=== PATIENT | male | born 1970 | race Caucasian/White ===

== ENCOUNTER 2019-09-22 08:00 | Outpatient (RCR) | payer OTHER, SELFPAY | END 2019-09-22 08:05 | disposition home or self-care (01) | LOC: PT 08:00 | PROVIDERS: PCP Nurse Practitioner Family; Visit Provider Orthopaedic Surgery Adult Reconstructive Orthopaedic Surgery | DX: M25.562 Pain in left knee (principal); M25.462 Effusion, left knee | CPT/HCPCS: 97010; 97014; 97110; 97163; 97760; G0283 ==

== ENCOUNTER → 2019-12-31 08:35 | Outpatient (CLI) | payer OTHER, SELFPAY ==
--- NOTE | 2019-12-31 08:35 | CT_ITS ---
PROCEDURE: CT ABDOMEN PELVIS WO/W CON CLINICAL INDICATION: hematuria History kidney stones COMPARISON: ABDPELW CT ABD PELVIS W/ CONTRAST from 10/20/2013 TECHNIQUE: IV Contrast: 75ML OPTIRAY 350 Oral Contrast 450ml Redicat Axial images obtained with sagittal and coronal reformats. All CT scans at the facility use one or more dose reduction, viz: automated exposure control, ma/kV adjustment per patient size (including targeted exams where dose is matched to indication, i.e. head), or iterative reconstruction technique. FINDINGS: LOWER THORAX: No acute finding. Coronary artery calcifications are present. There is mild thickening of the distal esophagus nonspecific ABDOMEN & PELVIS: There are 2 hypodense areas in the liver 1 in the hepatic dome in the left hepatic lobe measuring 5 mm and 1 in the medial segment of left hepatic lobe near the falciform ligament at 5 mm. The spleen has an unremarkable appearance as does the pancreas. There is nodularity of the left adrenal gland not significantly changed and may be due to adenomatous involvement. There has been a prior cholecystectomy. The wall the stomach appears somewhat thickened but could be due to nondistention. There is a 4 mm nonobstructing stone in the lower pole of the left kidney. No hydronephrosis. No ureteral calculi. No intestinal obstruction or free air. No evidence of appendicitis or diverticulitis. No ureteral calculi are evident. Calcification is present within the prostate centrally. No acute bony findings. IMPRESSION: 1. Nonobstructing left nephrolithiasis. No ureteral calculi. No hydronephrosis 2. There are 2 small hypodensities of the liver. These are nonspecific and too small to categorize statistically probably benign. 3. Thickened appearance of the wall the stomach which may be due to nondistention or gastritis. Dictated by: Joselito Morrison MD 01/01/2020 12:28 Electronically signed by Joselito Morrison MD in [facility] 01/01/2020 12:28
== END ==
PROVIDERS: PCP Nurse Practitioner Family; Visit Provider Urology
DX: R31.9 Hematuria, unspecified (principal)
CPT/HCPCS: 74178; Q9967

== ENCOUNTER 2020-02-19 07:33 | Outpatient (RCR) | payer OTHER, SELFPAY | END 2020-02-19 08:47 | disposition home or self-care (01) | LOC: PT 07:33 | PROVIDERS: PCP Nurse Practitioner Family; Visit Provider Orthopaedic Surgery Adult Reconstructive Orthopaedic Surgery | DX: M25.562 Pain in left knee (principal) | CPT/HCPCS: 97163 ==

== ENCOUNTER 2020-03-01 17:49 | Emergency (ER) | payer OTHER, SELFPAY ==
[2020-03-01 18:17] VITALS: BP 131/78; PULSE 71; RESP 20; TEMP 36.8; O2SAT 99; BMI 39.1
[2020-03-01 18:30] VITALS: BP 114/80; BP 131/78; PULSE 60; PULSE 71
--- NOTE | 2020-03-01 18:30 | ECG_ITS ---
APPROVED REPORT Exam: Resting ECG HR:73 bpm ECG Measurements Heart Rate 73 AXES OK 140 P 36 QRSd 80 QRS 25 QT 370 T 29 QTc 407 <Conclusion> Normal sinus rhythm Normal ECG Electronically signed by : Rah Ramos, 03/03/2020 06:43:16
--- NOTE | 2020-03-01 18:31 | PC.NURSE ---
PATIENT SENT TO ER PER PAPO BOBBY APRN FOR FURTHER EVALUATION
[2020-03-01 18:33] VITALS: BP 110/80; PULSE 71; RESP 20; TEMP 36.8; O2SAT 99; BMI 38.9
--- NOTE | 2020-03-01 18:34 | XR_ITS ---
PROCEDURE: XR CHEST PORTABLE CLINICAL HISTORY: orthostasis Hypotension, smoker COMPARISON: No exams were available for comparison FINDINGS: The cardiomediastinal silhouette and pulmonary vascularity are within normal limits. There is some minimal blunting of the left CP angle. This may only be due to overlying soft tissue attenuation. Cannot exclude a small effusion or pleural thickening. The lungs are otherwise clear. No acute bony abnormalities. IMPRESSION: Minimal blunting left CP angle as described above otherwise negative Dictated b Joselito Morrison MD 03/01/2020 21:49 Joselito Morrison MD in [facility] 03/02/2020 16:44
--- NOTE | 2020-03-01 18:34 | HMH.EDGENADL ---
ED Disposition Clinical Impression: Orthostasis, Near syncope Disposition: Home, Self-Care Condition on Discharge: Good Instructions: DI for Syncope in Adults (Fainting) Additional Instructions: You have been evaluated for near syncope when standing. Please try to stay hydrated, your creatinine was elevated today (could be due to dehydration). Take your antihypertensives at the same time every day. Avoid taking narcotic pain medication after your postoperative pain has resolved. Drink water to stay hydrated. Follow-up with your primary care doctor tomorrow as scheduled. Return to the emergency department tonight if you have any new or worsening symptoms, chest pain, dizziness, other concerns. Referrals: Nahid Montana APRN [Primary Care Provider] - Time of Disposition: 20:12 - Critical Care Critical Care Time: No Attestation: On 03/01/20, the high probability of a clinically significant, sudden or life threatening deterioration of the following system(s) required my full and direct attention, intervention and personal management. The time I documented below is in addition to time spent performing reported procedures but includes the following listed in this critical care notation. Medical Decision Making - Medical Records Medical records reviewed: Yes: I reviewed the patient's medical records. - Musa Inquiry Pt receiving controlled substance: No Vital Signs: 03/01/20 18:17 03/01/20 18:30 03/01/20 18:33 Temperature 98.3 F 98.3 F Temperature Source Oral Oral Pulse Rate [Left Brachial] 71 71 Pulse Rate [Orthostatic Sitting Left Brachial] 71 Pulse Rate [Orthostatic Standing Left Brachial] 60 Respiratory Rate 20 20 Blood Pressure [Left Arm] 131/78 110/80 Blood Pressure [Orthostatic Sitting Left Arm] 131/78 Blood Pressure [Orthostatic Standing Left Arm] 114/80 Blood Pressure Mean [Left Arm] 95 90 Blood Pressure Source [Left Arm] Automatic Cuff Automatic Cuff Blood Pressure Position [Left Arm] Sitting Sitting 02 Sat by Pulse Oximetry 99 99 Oxygen Delivery Method Room Air Room Air - Lab Data Lab Results 03/01/20 18:40: WBC 11.8 H, RBC 4.61, Hgb 14.8, Hct 44.7, MCV 96.9 H, MCH 32.0 H, MCHC 33.0, RDW 12.8, Plt Count 260, MPV 7.8, Neut % (Auto) 66.2, Lymph % (Auto) 26.4, [place] % (Auto) 5.0, Eos % (Auto) 1.7, Baso % (Auto) 0.7, Neut # (Auto) 7.8, Lymph # (Auto) 3.1, [place] # (Auto) 0.6, Eos # (Auto) 0.2, Baso # (Auto) 0.1 03/01/20 18:40: Sodium 138, Potassium 3.8, Chloride 102, Carbon Dioxide 27, Anion Gap 12.8, BUN 16, Creatinine 1.40 H, Estimated Creat Clear 132, Estimated GFR 53 L, Est GFR ( Amer) 65, Glucose 108 H, Calcium 9.4, Troponin I < 0.01 Result diagrams: 03/01/20 18:40 03/01/20 18:40 Orders (Tests/Meds): ORDERS Category Date Time Status CXR --portable [XR chest portable] Stat Exams 03/01/20 18:34 Taken Troponin I Q3H Lab 03/01/20 21:45 Ordered Troponin I Q3H Lab 03/02/20 00:45 Ordered - ECG Data Tracing #1 Sinus rhythm with ventricular rate of 73 bpm. QRS 80, QTc 407. No arrhythmia or ischemia. Medical Decision Narrative: In summary this is a 49-year-old male presenting to the emergency department with orthostasis and near syncopal episodes. Patient is overall well-appearing on arrival to the emergency department. No tachycardia or hypotension. Plan to obtain CBC, CMP, troponin profile, chest x-ray, EKG. EKG shows sinus rhythm without evidence of ischemia or arrhythmia. Laboratory results remarkable for elevated creatinine at 1.40, baseline within normal limits. Also evidence of dehydration on labs. Patient was able to tolerate oral fluid intake. Will not give IV fluids at this time. Initial troponin not elevated. Patient was recommended to stay for delta troponin, said he was not able to needed to go home. Was not having chest pain at this time. He will follow-up with his primary care physician tomorrow at 10 AM. Given strict return p
[2020-03-01 18:51] LABS: Basophils # 0.1 K/mm3 (0-0.2); Basophils % 0.7 % (0.1-2.0); Eosinophils # 0.2 K/mm3 (0.0-0.4); Eosinophils % 1.7 % (0.1-12.0); Hematocrit 44.7 % (42.0-52.0); Hemoglobin 14.8 g/dL (14.1-18.0); Lymphocytes # 3.1 K/mm3 (0.7-4.5); Lymphocytes % 26.4 % (10-50); Mean Corpuscular Volume 96.9 fl (80-94); Mean Platelet Volume 7.8 fl (7.4-10.4); Monocytes # 0.6 K/mm3 (0.1-1.0); Neutrophils # 7.8 K/mm3 (1.8-7.8); Neutrophils % 66.2 % (37.0-80.0); Platelet Count 260 K/mm3 (142-424); Red Blood Count 4.61 M/mm3 (4.60-6.20); Red Cell Distribution Width 12.8 % (11.5-17.5); White Blood Count 11.8 K/mm3 (4.8-10.8)
[2020-03-01 18:54] LABS: Chloride 102 mmol/L (98-107); Potassium 3.8 mmoL/L (3.5-5.1); Sodium 138 mmol/L (136-145)
[2020-03-01 18:57] LABS: Anion Gap 12.8 mEq/L (5-15); Blood Urea Nitrogen 16 mg/dl (9-20); Calcium 9.4 mg/dl (8.4-10.2); Carbon Dioxide 27 mmol/L (22.0-30.0); Creatinine Clearance Estimated 132 mL/min (50-200); Estimated Glomerular Filt Rate 53 ml/min (>60); GFR (African American) 65 ML/MIN (>60); Glucose 108 mg/dl (74-100)
[2020-03-01 19:21] LABS: Troponin I < 0.01 ng/ml (0.00-0.034)
[2020-03-01 20:42] VITALS: BP 151/79; PULSE 73; RESP 16; TEMP 36.8; O2SAT 98
== END 2020-03-01 20:45 | disposition home or self-care (01) ==
LOC: UTC 17:55 → ER 18:31
PROVIDERS: Emergency Provider Emergency Medicine; PCP Nurse Practitioner Family
DX: I95.1 Orthostatic hypotension (principal); R55 Syncope and collapse; J44.9 Chronic obstructive pulmonary disease, unspecified; F17.210 Nicotine dependence, cigarettes, uncomplicated; Z79.899 Other long term (current) drug therapy; Z87.442 Personal history of urinary calculi
CPT/HCPCS: 71045; 80048; 84484; 85025; 93005; 99283

== ENCOUNTER 2022-10-24 10:09 | Emergency (ER) | payer OTHER, SELFPAY ==
[2022-10-24 10:10] VITALS: BP 151/98; PULSE 71; RESP 21; TEMP 36.6; O2SAT 97; BMI 39.4
--- NOTE | 2022-10-24 10:22 | EXP.UTC ---
Discharge Plan Disposition Patient Disposition: Home, Self-Care Condition: Good Prescriptions Prescriptions: New amoxicillin 875 mg tablet 875 mg PO BID Qty: 20 0RF No Action potassium chloride 10 mEq capsule, extended release 10 meq PO DAILY Label Comments: TAKE ONE CAPSULE BY MOUTH EVERY DAY --TAKE WITH FOOD-- furosemide 20 mg tablet 20 mg PO DAILY testosterone [AndroGel] 1 % (25 mg/2.5gram) gel in packet 1 packet TRANSDERMA DAILY metoprolol succinate 50 MG tablet extended release 24 hr 50 mg PO DAILY omeprazole 40 MG capsule,delayed release(DR/EC) 40 mg PO DAILY hydrochlorothiazide 12.5 MG capsule 12.5 mg PO DAILY losartan 100 MG tablet 100 mg PO DAILY ciprofloxacin HCl 500 MG tablet 500 mg PO BID 10 Days Qty: 20 0RF Referrals Follow up/Referrals: Nahid Montana APRN [Primary Care Provider] - See instructions Activity Restrictions/Add. Instructions Additional Instructions/Restrictions: Take medication as prescribed Over the counter Debrox may help to removed clogged wax in ears follow up with your Family Doctor if no improvement or any worsening of symptoms Return if needed Clinical Impressions Clinical Impression: Otitis media Instructions Patient Instructions: Middle Ear Infection, Ear Infections (Alternative Therapy) Discharge ED Provider: Yoanna Dixon [facility] [place] HPI General Stated complaint: LT ear pain Mode of Arrival: Ambulatory Source of Information: Patient Limitations: No Limitations Time Seen by Provider: 10/24/22 10:22 Description of Symptoms (Recalled from Triage Doc. by RN): PATIENT C/O LEFT EAR PAIN WITH DECREASED HEARING THAT STARTED THIS MORNING HEENT Symptoms (Recalled from RN notes): Yes Resp Symptoms (Recalled from RN notes): No Skin Symptoms (Recalled from RN notes): No MS Symptoms (Recalled from RN notes): No Functional Status (Recalled from RN notes): WNL History of Present Illness Provider Complaint: Patient states that he had been having pain on and off in his left ear but this morning the pain is worse and his ear feels stopped up and unable to hear out of it so he came in to get checked Related Data Home Medications Medication Instructions Recorded Confirmed hydrochlorothiazide 12.5 mg capsule 12.5 mg PO DAILY HTN 08/28/19 01/05/20 losartan 100 mg tablet 100 mg PO DAILY HTN 08/28/19 01/05/20 metoprolol succinate 50 mg 50 mg PO DAILY HTN 08/28/19 01/05/20 tablet,extended release 24 hr omeprazole 40 mg capsule,delayed 40 mg PO DAILY GERD 08/28/19 01/05/20 release furosemide 20 mg tablet 20 mg PO DAILY 12/12/19 01/05/20 potassium chloride 10 mEq 10 meq PO DAILY 12/12/19 01/05/20 capsule,extended release testosterone 1 % (25 mg/2.5 gram) 1 packet transdermal DAILY 12/12/19 01/05/20 transdermal gel packet (AndroGel) Previous Rx's Medication Instructions Recorded ciprofloxacin HCl 500 mg tablet 500 mg PO BID 10 days #20 tabs 08/28/19 amoxicillin 875 mg tablet 875 mg PO BID #20 tabs 10/24/22 Allergies Allergy/AdvReac Type Severity Reaction Status Date / Time No Known Allergies Allergy Verified 01/05/20 14:00 Worker's Comp Is this a Worker's Comp case?: [facility] Disclaimer: The information contained in this section may have been updated after the patient was seen, as this information can be updated by other users. Social History Smoking Status: Current every day smoker tobacco type: cigarettes packs per day: 1 second hand exposure: Yes alcohol intake: never substance use type: marijuana current occupational status: other Travel in the last 8 weeks: None household members: spouse housing: house ROS Obtained: Yes All systems reviewed & no additional complaints except as documented and Yes Systems reviewed as appropriate & no additional complaints except as documented Constitutional Constitutional: Reports system reviewed and no additional complaints, exce
[2022-10-24 10:24] VITALS: BP 151/98; PULSE 71; RESP 21; TEMP 36.6; O2SAT 97
== END 2022-10-24 10:40 | disposition home or self-care (01) ==
PROVIDERS: Emergency Provider Nurse Practitioner; PCP Nurse Practitioner Family
DX: H66.92 Otitis media, unspecified, left ear (principal); F17.210 Nicotine dependence, cigarettes, uncomplicated
CPT/HCPCS: 99212; 99214; G0463

== ENCOUNTER 2022-10-31 15:44 | Emergency (ER) | payer OTHER, SELFPAY ==
[2022-10-31 15:55] VITALS: BP 140/97; PULSE 101; RESP 20; TEMP 36.8; O2SAT 97; BMI 39.2
--- NOTE | 2022-10-31 16:07 | EXP.UTC ---
Discharge Plan Disposition Patient Disposition: Home, Self-Care Condition: Good Prescriptions Prescriptions: New ciprofloxacin-dexamethasone 0.3-0.1 % Drops,Suspension 2 drp Ear-Left BID 7 Days Qty: 1 0RF methylprednisolone 4 mg Tablets,Dose Pack 4 mg PO DIRECTED Qty: 21 0RF cefdinir 300 mg capsule 300 mg PO BID Qty: 20 0RF No Action potassium chloride 10 mEq capsule, extended release 10 meq PO DAILY Label Comments: TAKE ONE CAPSULE BY MOUTH EVERY DAY --TAKE WITH FOOD-- furosemide 20 mg tablet 20 mg PO DAILY testosterone [AndroGel] 1 % (25 mg/2.5gram) gel in packet 1 packet TRANSDERMA DAILY metoprolol succinate 50 MG tablet extended release 24 hr 50 mg PO DAILY omeprazole 40 MG capsule,delayed release(DR/EC) 40 mg PO DAILY hydrochlorothiazide 12.5 MG capsule 12.5 mg PO DAILY losartan 100 MG tablet 100 mg PO DAILY Referrals Follow up/Referrals: Elieser Cuevas MD [Physician] - See instructions Nahid Montana APRN [Primary Care Provider] - See instructions Activity Restrictions/Add. Instructions Additional Instructions/Restrictions: Drink plenty of fluids. Take tylenol or ibuprofen for pain or fever. Take the medications as directed. Follow up with your regular doctor. GO TO THE ER FOR ANY WORSENING SYMPTOMS Stop the amoxicillin/clavulanate (augmentin) and start the cefdinir (omnicef) antibiotics Stop the ear drop that you are using and start the one we prescribed here today. Follow up with an ENT doctor. I put in a referral to Dr. Cuevas that comes here to the speciality clinic. Clinical Impressions Clinical Impression: Acute otitis media of left ear with perforation Instructions Patient Instructions: DI for Tympanic Membrane Perforation-Adult Discharge ED Provider: Jose Antonio Cuellar [facility] [place] General Stated complaint: ear ache Mode of Arrival: Ambulatory Source of Information: Patient Limitations: No Limitations Time Seen by Provider: 10/31/22 16:07 Description of Symptoms (Recalled from Triage Doc. by RN): Can't hear out of left ear HEENT Symptoms (Recalled from RN notes): Yes Resp Symptoms (Recalled from RN notes): No Skin Symptoms (Recalled from RN notes): No MS Symptoms (Recalled from RN notes): No Functional Status (Recalled from RN notes): n/a History of Present Illness Provider Complaint: He states that he has had decreased hearing in his left ear for the past 1 week. He was saw here 8 days ago for an ear infection. He has been taking augmentin since then. He states that his ear pain has resolved but he cannot hear out of the ear now. Related Data Home Medications Medication Instructions Recorded Confirmed hydrochlorothiazide 12.5 mg capsule 12.5 mg PO DAILY HTN 08/28/19 10/31/22 losartan 100 mg tablet 100 mg PO DAILY HTN 08/28/19 10/31/22 metoprolol succinate 50 mg 50 mg PO DAILY HTN 08/28/19 10/31/22 tablet,extended release 24 hr omeprazole 40 mg capsule,delayed 40 mg PO DAILY GERD 08/28/19 10/31/22 release furosemide 20 mg tablet 20 mg PO DAILY Fluid 12/12/19 10/31/22 potassium chloride 10 mEq 10 meq PO DAILY . 12/12/19 10/31/22 capsule,extended release testosterone 1 % (25 mg/2.5 gram) 1 packet transdermal DAILY 12/12/19 01/05/20 transdermal gel packet (AndroGel) Previous Rx's Medication Instructions Recorded cefdinir 300 mg capsule 300 mg PO BID #20 caps 10/31/22 ciprofloxacin 0.3 %-dexamethasone 2 drp Ear-Left BID 7 days #1 ea 10/31/22 0.1 % ear drops,suspension methylprednisolone 4 mg tablets in 4 mg PO DIRECTED #21 tabs 10/31/22 a dose pack Allergies Allergy/AdvReac Type Severity Reaction Status Date / Time No Known Allergies Allergy Verified 10/31/22 16:02 Worker's Comp Is this a Worker's Comp case?: No [facility] Disclaimer: The information contained in this section may have been updated after the patient was seen, as this information can be u
[2022-10-31 16:52] VITALS: BP 140/97; PULSE 101; RESP 20; TEMP 36.8; O2SAT 97
== END 2022-10-31 16:52 | disposition home or self-care (01) ==
PROVIDERS: Emergency Provider Nurse Practitioner Family; PCP Nurse Practitioner Family
DX: H66.92 Otitis media, unspecified, left ear (principal); H72.92 Unspecified perforation of tympanic membrane, left ear; F17.210 Nicotine dependence, cigarettes, uncomplicated
CPT/HCPCS: 99212; 99214; G0463

== ENCOUNTER 2022-11-19 11:00 | Emergency (ER) | payer OTHER, SELFPAY ==
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
[2022-11-19 11:35] VITALS: BP 147/96; PULSE 72; RESP 18; TEMP 36.8; O2SAT 97; BMI 39.1
[2022-11-19 12:13] VITALS: BP 147/96; PULSE 72; RESP 18; TEMP 36.8; O2SAT 97
== END 2022-11-19 12:22 | disposition home or self-care (01) ==
PROVIDERS: Emergency Provider Nurse Practitioner Family; PCP Nurse Practitioner Family
DX: S39.012A Strain of muscle, fascia and tendon of lower back, initial encounter (principal); M54.32 Sciatica, left side; F17.210 Nicotine dependence, cigarettes, uncomplicated; I10 Essential (primary) hypertension; K21.9 Gastro-esophageal reflux disease without esophagitis; X50.0XXA Overexertion from strenuous movement or load, initial encounter
CPT/HCPCS: 96372; 99212; 99214; G0463

== ENCOUNTER 2023-12-16 07:45 | Emergency (ER) | payer OTHER, SELFPAY ==
[2023-12-16 07:47] VITALS: BP 112/84; PULSE 111; RESP 21; TEMP 36.9; O2SAT 97; BMI 35.3
--- NOTE | 2023-12-16 07:51 | ECG_ITS ---
APPROVED REPORT Exam: Resting ECG HR:105 bpm ECG Measurements Heart Rate 105 AXES NE 140 P 66 QRSd 85 QRS 50 QT 326 T 40 QTc 387 Conclusion SINUS TACHYCARDIA ABNORMAL RHYTHM ECG UNCONFIRMED REPORT Electronically signed by : Jose Antonio Spence, 12/16/2023 15:12:45
[2023-12-16 07:52] VITALS: BP 112/84; PULSE 102; RESP 16; O2SAT 98
[2023-12-16 07:54] VITALS: BMI 35.3
--- NOTE | 2023-12-16 07:58 | PC.NURSE ---
DR OJEDA AT BEDSIDE
[2023-12-16 08:00] VITALS: BP 126/76; PULSE 100; RESP 18; O2SAT 98
--- NOTE | 2023-12-16 08:08 | CT_ITS ---
PROCEDURE INFORMATION: Exam: CTA Chest With Contrast Exam date and time: 12/16/2023 8:33 AM Age: 53 years old Clinical indication: Dyspnea; Additional info: Dyspnea, recent lung mass diagnosis TECHNIQUE: Imaging protocol: Computed tomographic angiography of the chest with contrast. Exam focused on the arteries. 3D rendering (Not supervised by radiologist): MIP and/or 3D reconstructed images were created by the technologist. Radiation optimization: All CT scans at this facility use at least one of these dose optimization techniques: automated exposure control; mA and/or kV adjustment per patient size (includes targeted exams where dose is matched to clinical indication); or iterative reconstruction. Contrast material: ISOVUE; Contrast volume: 70 ml; Contrast route: INTRAVENOUS (IV); COMPARISON: CR XR CHEST PORTABLE 03/01/2020 6:52 PM FINDINGS: Pulmonary arteries: No evidence of pulmonary embolus to the segmental level. Aorta: No aneurysm of the aorta. No dissection of the aorta. Lungs: Heterogeneous mass in right lower lobe measures 7 x 10 x 6.4 cm. It has a 5.6 x 4 cm low-attenuation area that may be necrotic tumor. Pleural spaces: Small right pleural effusion. Heart: Unremarkable. No cardiomegaly. No pericardial effusion. Lymph nodes: Pathologic node adjacent to the bronchus intermedius 2.6 x 2.1 cm (series 5, image 67.). Right hilar node 17 x 14 mm.. Gallbladder and bile ducts: Cholecystectomy Kidneys and ureters: Nonobstructing left renal calculi Bones/joints: Unremarkable. No acute fracture. Soft tissues: Unremarkable. IMPRESSION: 1. Heterogeneous mass in right lower lobe measures 7 x 10 x 6.4 cm. It has a 5.6 x 4 cm low-attenuation area that may be necrotic tumor. Consistent with malignancy 2. Small right pleural effusion. 3. Pathologic node adjacent to the bronchus intermedius 2.6 x 2.1 cm (series 5, image 67.). 4. Right hilar node 17 x 14 mm.. 5. No evidence of pulmonary embolus to the segmental level.
--- NOTE | 2023-12-16 08:08 | PC.NURSE ---
pt ambulated to bathroom, tolerated well
--- NOTE | 2023-12-16 08:09 | ED_ITS ---
Discharge Plan Disposition Patient Disposition: Home, Self-Care Prescriptions Prescriptions: No Action potassium chloride 10 mEq capsule, extended release 10 meq PO DAILY Patient Comments: TAKE ONE CAPSULE BY MOUTH EVERY DAY --TAKE WITH FOOD-- furosemide 20 mg tablet 20 mg PO DAILY testosterone [AndroGel] 1 % (25 mg/2.5gram) gel in packet 1 packet TRANSDERMA DAILY ciprofloxacin-dexamethasone 0.3-0.1 % Drops,Suspension 2 drp Ear-Left BID 7 Days Qty: 1 0RF methylprednisolone 4 mg Tablets,Dose Pack 4 mg PO DIRECTED Qty: 21 0RF cefdinir 300 mg capsule 300 mg PO BID Qty: 20 0RF metoprolol succinate 50 MG tablet extended release 24 hr 50 mg PO DAILY omeprazole 40 MG capsule,delayed release(DR/EC) 40 mg PO DAILY hydrochlorothiazide 12.5 MG capsule 12.5 mg PO DAILY losartan 100 MG tablet 100 mg PO DAILY methocarbamol 500 mg tablet 500 mg PO TID PRN (Reason: muscle pain) Qty: 30 0RF methylprednisolone 4 mg Tablets,Dose Pack 4 mg PO DIRECTED Qty: 21 0RF Referrals Follow up/Referrals: Ami Martins MD [Physician] - See instructions Nahid Montana APRN [Primary Care Provider] - See instructions Activity Restrictions/Add. Instructions Additional Instructions/Restrictions: You have a lung mass on the right side with a maximal diameter of 10 cm with central necrosis and surrounding lymph nodes consistent with malignancy or cancer. It is important that you follow-up with our commercial baker helper to get a tissue diagnosis from a biopsy. You may continue to try to follow-up with [facility] as you discussed however you likely will be seen faster in our clinic. I recommend you call tomorrow to make an appointment. No emergent medical condition identified such as blood clot heart attack infection etc. Please return with any significant worsening of her symptoms such as worsening shortness of breath high fevers or other concerns. Clinical Impressions Clinical Impression: Acute dyspnea, Lung mass Discharge ED Provider: Brielle Spence HPI General Chief Complaint: Shortness of Breath/Dyspnea Stated Complaint: elivated bp soa dizziness Time Seen by Provider: 12/16/23 07:57 Mode of Arrival: Ambulatory Source of Information: Patient Limitations: No Limitations Description of Symptoms (Recalled from ER Triage Doc. by RN): c/o soa with walking, pt reports that they found a lung mass 2 weeks ago and he feels like this is causing his issue. Denies any chest pain History of Present Illness HPI narrative: Patient is a 53-year-old male presents today with dyspnea. Has a 21-yngl-dtld history of smoking states he was recently at [facility] emergency department after developing night sweats and 40 pound weight loss over the last 4 months where he was diagnosed with a 9 mm lung mass. He was post to have this followed up with a biopsy but states that the camera broke. Subsequently he had a referral to [facility] but has not heard back from them and has no definitive follow-up. There is any presents to our emergency department today as he had acute worsening of his dyspnea within the last 24 hours and states that he feels like an elephant is sitting on his chest. The symptoms have been constant since yesterday. He also has a home pulse oximeter which showed that his heart rate with minimal exertion has been in the mid 120s. Oxygen saturations have been in the upper 90s and have not been depressed. No worsening cough fevers chills or wheezing etc. Related Data Home Medications Medication Instructions Recorded Confirmed hydrochlorothiazide 12.5 mg capsule 12.5 mg PO DAILY HTN 08/28/19 10/31/22 losartan 100 mg tablet 100 mg PO DAILY HTN 08/28/19 10/31/22 metoprolol succinate 50 mg 50 mg PO DAILY HTN 08/28/19 10/31/22 tablet,extended release 24 hr omeprazole 40 mg capsule,delayed 40 mg PO DAILY GERD 08/28/19 10/31/22 release furosemide 20 mg tablet 20 mg PO DAILY Fluid 12/12/19 10/31/22 potassium chloride 10 mEq 10 meq PO DAILY . 12/12/19 10/31/22 capsule,extended release testosterone 1 % (25 mg/2.5 gram) 1 packet transdermal DAILY 12/12/19 01/05/20 transdermal gel packet (AndroGel) Previous Rx's Medication Instructions Recorded cefdinir 300 mg capsule 300 mg PO BID #20 caps 10/31/22 ciprofloxacin 0.3 %-dexamethasone 2 drp Ear-Left BID 7 days #1 ea 10/31/22 0.1 % ear drops,suspension methylprednisolone 4 mg tablets in 4 mg PO DIRECTED #21 tabs 10/31/22 a dose pack methocarbamol 500 mg tablet 500 mg PO TID PRN muscle pain #30 11/19/22 tabs methylprednisolone 4 mg tablets in 4 mg PO DIRECTED #21 tabs 11/19/22 a dose pack Allergies Allergy/AdvReac Type Severity Reaction Status Date / Time No Known Allergies Allergy Verified 10/31/22 16:02 [facility] Disclaimer: The information contained in this section may have been updated after the patient was seen, as this information can be updated by other users. Social History Smoking Status: Current every day smoker tobacco type: cigarettes packs per day: 1 second hand exposure: Yes alcohol intake: never substance use type: marijuana current occupational status: other Travel in the last 8 weeks: None household members: spouse housing: house ROS Obtained: Yes All systems reviewed & no additional complaints except as documented Physical Exam General General appearance: alert and in no apparent distress Respiratory Respiratory exam: Present normal lung sounds bilaterally; Absent respiratory distress, wheezes, stridor, accessory muscle use or prolonged expiratory phase Cardiovascular Cardiovascular exam: Present normal rhythm and tachycardia Neurological Exam Neurological exam: Present alert and oriented X3 HEART Score HEART Score HEART Score assessment performed?: Yes History (anamnesis): Slightly suspicious ECG: Non-specific disturbance Age: 45-65 years Risk factors: 1-2 risk factors Troponin: </= normal limit HEART Score: 3 Critical Care Critical Care Time Critical Care Time: No Medical Decision Making Musa Inquiry Pt receiving controlled substance: No Vital Signs Vital Signs: 12/16/23 07:47 12/16/23 07:52 12/16/23 08:00 Temperature 98.4 F Temperature Source Oral Pulse Rate 102 H 100 H Pulse Rate [Left Radial] 111 H Respiratory Rate 21 16 18 Blood Pressure 112/84 126/76 Blood Pressure [Right Arm] 112/84 Blood Pressure Mean 89 92 Blood Pressure Mean [Right Arm] 93 Blood Pressure Source [Right Arm] Automatic Cuff Blood Pressure Position [Right Arm] Sitting 02 Sat by Pulse Oximetry 97 98 98 Oxygen Delivery Method Room Air 12/16/23 09:00 12/16/23 09:30 Temperature Temperature Source Pulse Rate 86 86 Pulse Rate [Left Radial] Respiratory Rate 24 18 Blood Pressure 113/70 111/73 Blood Pressure [Right Arm] Blood Pressure Mean 83 Blood Pressure Mean [Right Arm] Blood Pressure Source [Right Arm] Blood Pressure Position [Right Arm] 02 Sat by Pulse Oximetry 98 97 Oxygen Delivery Method Lab Data Lab results reviewed: Yes I reviewed the patient's lab results. Labs: Lab Results 12/16/23 07:55: WBC 14.2 H, RBC 3.94 L, Hgb 10.8 L, Hct 34.4 L, MCV 87.4, MCH 27.4, MCHC 31.3 L, RDW 16.3, Plt Count 494 H, MPV 8.0, Neut % (Auto) 77.9, Lymph % (Auto) 15.7, [place] % (Auto) 5.4, Eos % (Auto) 0.7, Baso % (Auto) 0.4, Neut # (Auto) 11.0 H, Lymph # (Auto) 2.2, [place] # (Auto) 0.8, Eos # (Auto) 0.1, Baso # (Auto) 0.1, Sodium 138, Potassium 4.0, Chloride 102, Carbon Dioxide 28, Anion Gap 12.0, BUN 15, Creatinine 0.90, Estimated Creat Clear 177, Estimated GFR 88, Est GFR ( Amer) 106, Glucose 142 H, Calcium 9.9, Total Bilirubin 0.7, AST 34, ALT 45, Alkaline Phosphatase 263 H, Troponin I < 0.01, NT-Pro-B Natriuret Pep 63.5, Total Protein 7.8, Albumin 3.3 L, Globulin 4.5 H, Albumin/Globulin Ratio 0.7 L 12/16/23 07:55 12/16/23 07:55 Response Orders (Tests/Meds): ED MEDICATIONS Discontinued Medications Generic Name Dose Route Start Last Admin Trade Name Freq PRN Reason Stop Dose Admin Lactated Ringer's 1,000 mls @ 999 mls/hr 12/16/23 08:15 12/16/23 08:30 Lactated Ringer's 1000 Ml Bag IV 12/16/23 09:15 999 mls/hr .Q1H1M KENISHA Administration Iopamidol 70 ml 12/16/23 08:40 12/16/23 08:41 Iopamidol-370 (76%);100ml Bottle IV 12/16/23 08:41 70 ml ONCE ONE Administration Sodium Chloride 10 ml 12/16/23 08:40 12/16/23 08:41 Sodium Chloride 0.9% 10ml Syr (Rad Only) IV 12/16/23 08:41 10 ml ONCE ONE Administration Sodium Chloride 50 ml 12/16/23 08:40 12/16/23 08:41 0.9 % Sodium Chloride 50 Ml Vial IV 12/16/23 08:41 50 ml ONCE ONE Administration ORDERS Category Date Time Status CT angio chest PE protocol Stat Cat Scan 12/16/23 08:08 Completed BNP [NT Pro Brain Natriuretic Pep.] Stat Lab 12/16/23 07:55 Completed CBC w/Auto Diff [Complete Blood Count Auto Diff] Stat Lab 12/16/23 07:55 Completed CMP [Comprehensive Metabolic Panel] Stat Lab 12/16/23 07:55 Completed Trop I [Troponin I] Stat Lab 12/16/23 07:55 Completed Troponin I Q3H Lab 12/16/23 11:15 Ordered Troponin I Q3H Lab 12/16/23 14:15 Ordered ECG Data Tracing #1: Attestation: I reviewed this ECG and interpreted as documented below: ECG Narrative: Ventricular rate of 105 sinus tachycardia no acute ischemic changes noted there is normal axis and no significant conduction abnormality MDM Narrative Medical Decision Narrative: Well-appearing 53-year-old male present today with tachycardia and acute dyspnea. Differential includes pneumonia worsening pulmonary mass, pulmonary embolism, heart failure, acute coronary syndrome etc. He had a recent CT scan showing a 9 mm mass in his left lung he states. I am attempting to get records from [facility] at the moment. Will repeat a CT scan specifically get a CT angio to rule out a pulmonary embolism which is my biggest concern at the moment. EKG was nonischemic willing to do single troponin given the duration of his symptoms and ongoing symptoms since yesterday. Will reassess after initial workup is complete. The scan performed on first interpreted showed a large right-sided lung mass. Please see radiology read below. This is consistent with cancer. He is aware of this. He is not in any distress his vital signs are improved and normal. Troponin negative not consistent with pulmonary embolism VT etc. Patient will follow-up with our commercial baker helper to get a tissue biopsy. 1. Heterogeneous mass in right lower lobe measures 7 x 10 x 6.4 cm. It has a 5.6 x 4 cm low-attenuation area that may be necrotic tumor. Consistent with malignancy 2. Small right pleural effusion. 3. Pathologic node adjacent to the bronchus intermedius 2.6 x 2.1 cm (series 5, image 67.). 4. Right hilar node 17 x 14 mm.. 5. No evidence of pulmonary embolus to the segmental level.
[2023-12-16 08:15] LABS: Basophils # 0.1 K/mm3 (0-0.2); Basophils % 0.4 % (0.1-2.0); Eosinophils # 0.1 K/mm3 (0.0-0.4); Eosinophils % 0.7 % (0.1-12.0); Hematocrit 34.4 % (42.0-52.0); Hemoglobin 10.8 g/dL (14.1-18.0); Lymphocytes # 2.2 K/mm3 (0.7-4.5); Lymphocytes % 15.7 % (10-50); Mean Corpuscular HGB Conc 31.3 g/dL (31.8-35.4); Mean Corpuscular Hemoglobin 27.4 pg (27.0-31.2); Mean Corpuscular Volume 87.4 fl (80-94); Monocytes # 0.8 K/mm3 (0.1-1.0); Monocytes % 5.4 % (1.7-9.3); Neutrophils % 77.9 % (37.0-80.0); Platelet Count 494 K/mm3 (142-424); Red Blood Count 3.94 M/mm3 (4.60-6.20); Red Cell Distribution Width 16.3 % (11.5-17.5); White Blood Count 14.2 K/mm3 (4.8-10.8)
--- NOTE | 2023-12-16 08:15 | PC.NURSE ---
3 ATT FOR MEDICAL RECORDS AT [place] WITH NO ANSWER
[2023-12-16 08:16] LABS: Chloride 102 mmol/L (98-107); Sodium 138 mmol/L (136-145)
[2023-12-16 08:19] LABS: Alanine Aminotransferase 45 U/L (12-78); Albumin Level 3.3 g/dl (3.5-5.0); Albumin/Globulin Ratio 0.7 (1.1-1.8); Alkaline Phosphatase 263 U/L (38-126); Aspartate Amino Transferase 34 U/L (17-59); Bilirubin,Total 0.7 mg/dl (0.2-1.3); Blood Urea Nitrogen 15 mg/dl (9-20); Carbon Dioxide 28 mmol/L (22.0-30.0); Creatinine Clearance Estimated 177 mL/min (50-200); Estimated Glomerular Filt Rate 88 ml/min (>60); GFR (African American) 106 ML/MIN (>60); Globulin 4.5 g/dL (1.3-3.2); Total Protein,Serum 7.8 g/dl (6.3-8.2)
[2023-12-16 08:20] LABS: Calcium 9.9 mg/dl (8.4-10.2); Glucose 142 mg/dl (74-100)
--- NOTE | 2023-12-16 08:27 | PC.NURSE ---
PT GOING TO CT
[2023-12-16 08:29] LABS: NT Pro Brain Natriuretic Pep. 63.5 pg/mL (0-125)
[2023-12-16] MEDS: LACTATED RINGERS 1000ML 1,000 ML 999 ML IV (08:30)
[2023-12-16 08:32] LABS: Troponin I < 0.01 ng/ml (0.00-0.034)
[2023-12-16] MEDS: 0.9 % SODIUM CHLORIDE 50 ML VIAL IV (08:41)
[2023-12-16] MEDS: SODIUM CHLORIDE 0.9% 10ML SYR (RAD ONLY) 10 ML IV (08:41)
[2023-12-16] MEDS: IOPAMIDOL-370 (76%);100ML BOTTLE 70 ML IV (08:41)
[2023-12-16 09:00] VITALS: BP 113/70; PULSE 86; RESP 24; O2SAT 98
[2023-12-16 09:30] VITALS: BP 111/73; PULSE 86; RESP 18; O2SAT 97
[2023-12-16 10:00] VITALS: BP 111/73; PULSE 92; RESP 20; TEMP 36.7; O2SAT 97
== END 2023-12-16 10:00 | disposition home or self-care (01) ==
PROVIDERS: Emergency Provider Student in an Organized Health Care Education/Training Program; PCP Nurse Practitioner Family
DX: R06.02 Shortness of breath (principal); R91.8 Other nonspecific abnormal finding of lung field; R00.0 Tachycardia, unspecified; F17.210 Nicotine dependence, cigarettes, uncomplicated
CPT/HCPCS: 71275; 80053; 83880; 84484; 85025; 93005; 96360; 99284; Q9967

== ENCOUNTER 2024-02-23 19:39 | Emergency (ER) | payer OTHER, SELFPAY ==
[2024-02-23] VITALS (8 sets, daily range): BP systolic 101–124; BP diastolic 66–81; PULSE 71–91; RESP 12–19; TEMP 36.5; O2SAT 96–100; BMI 33.5
--- NOTE | 2024-02-23 19:52 | CT_ITS ---
PROCEDURE INFORMATION: Exam: CTA Chest With Contrast Exam date and time: 02/23/2024 8:39 PM Age: 53 years old Clinical indication: Other: Tingling and numbness; Additional info: N/t, HX vte on eliquis, HX lung CA TECHNIQUE: Imaging protocol: Computed tomographic angiography of the chest with contrast. Exam focused on the arteries. 3D rendering (Not supervised by radiologist): MIP and/or 3D reconstructed images were created by the technologist. Radiation optimization: All CT scans at this facility use at least one of these dose optimization techniques: automated exposure control; mA and/or kV adjustment per patient size (includes targeted exams where dose is matched to clinical indication); or iterative reconstruction. Contrast material: ISOUVE 370; Contrast volume: 70 ml; Contrast route: INTRAVENOUS (IV); COMPARISON: CT ANGIO CHEST PE PROTOCOL 02/23/2024 8:39 PM FINDINGS: Tubes, catheters and devices: Left subclavian central venous catheter tip in the lower superior vena cava. Pulmonary arteries: No acute pulmonary emboli. Aorta: Unremarkable. No aortic aneurysm. No aortic dissection. Lungs: 7.4 x 6.2 cm heterogeneous mass within the superior segment right lower lobe, similar to comparison study, likely patient's known lung carcinoma. Mild bilateral upper and lower lobe bronchial wall thickening, compatible with reactive airway disease or bronchitis. Calcified granuloma within the right upper lobe. Pleural spaces: Small right pleural effusion with associated atelectasis. Heart: Unremarkable. No cardiomegaly. No pericardial effusion. Lymph nodes: Unremarkable. No enlarged lymph nodes. Spleen: Splenic calcifications, compatible with prior granulomatous disease. Bones/joints: Dextroscoliosis of the upper thoracic spine. Soft tissues: Unremarkable. IMPRESSION: 1. No acute pulmonary emboli. 2. Small right pleural effusion with associated atelectasis. 3. 7.4 x 6.2 cm heterogeneous mass within the superior segment right lower lobe, similar to comparison study, likely patient's known lung carcinoma. 4. Mild bilateral upper and lower lobe bronchial wall thickening, compatible with reactive airway disease or bronchitis.
--- NOTE | 2024-02-23 19:52 | CT_ITS ---
PROCEDURE INFORMATION: Exam: CT Head Without Contrast Exam date and time: 02/23/2024 8:28 PM Age: 53 years old Clinical indication: Numbness / parasthesia; Additional info: N/t b/l, HX venous thromb on eliq, lung CA TECHNIQUE: Imaging protocol: Computed tomography of the head without contrast. Radiation optimization: All CT scans at this facility use at least one of these dose optimization techniques: automated exposure control; mA and/or kV adjustment per patient size (includes targeted exams where dose is matched to clinical indication); or iterative reconstruction. COMPARISON: CT HEAD/BRAIN WO CON 05/18/2019 2:53 PM FINDINGS: Brain: Normal. No hemorrhage. Unremarkable white matter. No mass effect. Cerebral ventricles: No ventriculomegaly. Paranasal sinuses: Visualized sinuses are unremarkable. No fluid levels. Mastoid air cells: Visualized mastoid air cells are well aerated. Bones: Unremarkable. No acute fracture. Soft tissues: Unremarkable. IMPRESSION: No acute intracranial abnormality.
--- NOTE | 2024-02-23 19:52 | ECG_ITS ---
APPROVED REPORT Exam: Resting ECG HR:86 bpm ECG Measurements Heart Rate 86 AXES CA 129 P 18 QRSd 89 QRS 18 QT 357 T 17 QTc 400 Conclusion SINUS RHYTHM NORMAL ECG Electronically signed by : ARISTEO AZAR, 02/23/2024 21:11:39
--- NOTE | 2024-02-23 20:01 | PC.NURSE ---
Limb alert and fall risk bracelet placed on pt. pt is no sticls or bp in right arm d/t injury
--- NOTE | 2024-02-23 20:02 | ED_ITS ---
Discharge Plan Disposition Patient Disposition: Home, Self-Care Condition: Good Prescriptions Prescriptions: New doxycycline hyclate 100 mg capsule 100 mg PO BID 7 Days Qty: 14 0RF No Action potassium chloride 10 mEq capsule, extended release 10 meq PO DAILY Patient Comments: TAKE ONE CAPSULE BY MOUTH EVERY DAY --TAKE WITH FOOD-- furosemide 20 mg tablet 20 mg PO DAILY testosterone [AndroGel] 1 % (25 mg/2.5gram) gel in packet 1 packet TRANSDERMA DAILY ciprofloxacin-dexamethasone 0.3-0.1 % Drops,Suspension 2 drp Ear-Left BID 7 Days Qty: 1 0RF methylprednisolone 4 mg Tablets,Dose Pack 4 mg PO DIRECTED Qty: 21 0RF cefdinir 300 mg capsule 300 mg PO BID Qty: 20 0RF metoprolol succinate 50 MG tablet extended release 24 hr 50 mg PO DAILY omeprazole 40 MG capsule,delayed release(DR/EC) 40 mg PO DAILY hydrochlorothiazide 12.5 MG capsule 12.5 mg PO DAILY losartan 100 MG tablet 100 mg PO DAILY methocarbamol 500 mg tablet 500 mg PO TID PRN (Reason: muscle pain) Qty: 30 0RF methylprednisolone 4 mg Tablets,Dose Pack 4 mg PO DIRECTED Qty: 21 0RF Referrals Follow up/Referrals: Nahid Montana APRN [Primary Care Provider] - See instructions Activity Restrictions/Add. Instructions Additional Instructions/Restrictions: Take doxycycline as prescribed and follow-up closely with your primary care provider and oncologist for continued management. Return for any new or worsening symptoms or any concerns that arise. Clinical Impressions Clinical Impression: Paresthesia of both feet Acute bronchitis Qualifiers: Bronchitis organism: unspecified organism Qualified Code(s): J20.9 - Acute bronchitis, unspecified Instructions Patient Instructions: DI for Numbness/Tingling Print Language Print Language: Estonian Discharge ED Provider: Ava Grimaldo General Adult HPI General Chief complaint: Extremity Problem,Nontraumatic Stated complaint: legs and arms numb, tingly Time Seen by Provider: 02/23/24 19:42 Mode of Arrival: Wheelchair Source of Information: Patient Limitations: No Limitations Description of Symptoms (Recalled from ER Triage Doc. by RN): Pt present with bilateral leg tingling upon standing since Sunday. Pt reports he is receiving chemo weekly and radiation 5x per week for III lung CA. He has received 3 chemo tx so far and experienced similar tingling during infusion and told it could be a possible side effect. History of Present Illness HPI narrative: Patient is a 53-year-old male with past medical history of stage III lung cancer on chemotherapy and radiation, hypertension and hyperlipidemia presenting with numbness and tingling. He states that he started to have some bilateral feet/lower leg tingling 4 days ago, got his most recent chemoinfusion 5 days ago and has received 3 infusions of chemo so far. He is also receiving radiation 5 times per week. He notes also some tingling in his bilateral pinkies during this time. He states that when he stands up the symptoms will come on but when he is at rest with a tacos. Given ongoing symptoms he presents for further evaluation. He denies any chest pain, shortness of breath, fevers, chills, nausea, vomiting, abdominal pain. He does take Eliquis daily due to history of venous thrombosis discovered 3 months ago. Related Data Home Medications ?Medication ?Instructions ?Recorded ?Confirmed hydrochlorothiazide 12.5 mg capsule 12.5 mg PO DAILY HTN 08/28/19 10/31/22 losartan 100 mg tablet 100 mg PO DAILY HTN 08/28/19 10/31/22 metoprolol succinate 50 mg 50 mg PO DAILY HTN 08/28/19 10/31/22 tablet,extended release 24 hr omeprazole 40 mg capsule,delayed 40 mg PO DAILY GERD 08/28/19 10/31/22 release furosemide 20 mg tablet 20 mg PO DAILY Fluid 12/12/19 10/31/22 potassium chloride 10 mEq 10 meq PO DAILY . 12/12/19 10/31/22 capsule,extended release testosterone 1 % (25 mg/2.5 gram) 1 packet transdermal DAILY 12/12/19 01/05/20 transdermal gel packet (AndroGel) Previous Rx's ?Medication ?Instructions ?Recorded cefdinir 300 mg capsule 300 mg PO BID #20 caps 10/31/22 ciprofloxacin 0.3 %-dexamethasone 2 drp Ear-Left BID 7 days #1 ea 10/31/22 0.1 % ear drops,suspension methylprednisolone 4 mg tablets in 4 mg PO DIRECTED #21 tabs 10/31/22 a dose pack methocarbamol 500 mg tablet 500 mg PO TID PRN muscle pain #30 11/19/22 tabs methylprednisolone 4 mg tablets in 4 mg PO DIRECTED #21 tabs 11/19/22 a dose pack doxycycline hyclate 100 mg capsule 100 mg PO BID 7 days #14 caps 02/23/24 Allergies Allergy/AdvReac Type Severity Reaction Status Date / Time No Known Allergies Allergy Verified 10/31/22 16:02 [facility] Disclaimer: The information contained in this section may have been updated after the patient was seen, as this information can be updated by other users. Social History Smoking Status: Current every day smoker tobacco type: cigarettes packs per day: 1 second hand exposure: Yes alcohol intake: never substance use type: marijuana current occupational status: other Travel in the last 8 weeks: None household members: spouse housing: house ROS Obtained: Yes Systems reviewed as appropriate & no additional complaints except as documented Physical Exam General General appearance: alert and in no apparent distress Chest Chest inspection: Present normal inspection, symmetric chest wall rise and other (Port present over left chest without erythema or ecchymosis) Respiratory Respiratory exam: Present normal lung sounds bilaterally; Absent respiratory distress Cardiovascular Cardiovascular exam: Present regular rate and normal rhythm Abdominal Exam Abdominal exam: Present soft; Absent tenderness Extremities Exam Extremities exam: Present normal inspection, full ROM and other (Sensation intact bilateral lower extremities and strength intact bilateral lower upper extremities.); Absent cyanosis Neurological Exam Neurological exam: Present alert, oriented X3 and normal gait; Absent motor sensory deficit Skin Skin exam: Present warm and dry Medical Decision Making Medical Records Medical records reviewed: Yes I reviewed the patient's medical records. Musa Inquiry Pt receiving controlled substance: No Vital Signs: 02/23/24 19:41 02/23/24 20:13 02/23/24 20:30 Temperature 97.7 F Temperature Source Oral Pulse Rate 91 H 90 Pulse Rate [Left] 81 Respiratory Rate 18 13 12 Blood Pressure 111/74 109/71 L Blood Pressure [Left Arm] 124/81 Blood Pressure Mean [Left Arm] 95 Blood Pressure Source [Left Arm] Automatic Cuff Blood Pressure Position [Left Arm] Sitting 02 Sat by Pulse Oximetry 98 98 96 Oxygen Delivery Method Room Air 02/23/24 21:03 02/23/24 21:30 02/23/24 22:00 Temperature Temperature Source Pulse Rate 85 71 86 Pulse Rate [Left] Respiratory Rate 13 14 13 Blood Pressure 106/66 L 107/68 L 101/67 L Blood Pressure [Left Arm] Blood Pressure Mean [Left Arm] Blood Pressure Source [Left Arm] Blood Pressure Position [Left Arm] 02 Sat by Pulse Oximetry 98 97 99 Oxygen Delivery Method 02/23/24 22:30 Temperature Temperature Source Pulse Rate 83 Pulse Rate [Left] Respiratory Rate 19 Blood Pressure 124/79 Blood Pressure [Left Arm] Blood Pressure Mean [Left Arm] Blood Pressure Source [Left Arm] Blood Pressure Position [Left Arm] 02 Sat by Pulse Oximetry 100 Oxygen Delivery Method Lab Data Lab results reviewed: Yes I reviewed the patient's lab results. Lab Results 02/23/24 20:13: WBC 5.5, RBC 3.47 L, Hgb 9.8 L, Hct 31.5 L, MCV 90.7, MCH 28.2, MCHC 31.1 L, RDW 20.0 H, Plt Count 267, MPV 8.0, Neut % (Auto) 78.2, Lymph % (Auto) 15.9, [place] % (Auto) 3.4, Eos % (Auto) 2.0, Baso % (Auto) 0.4, Neut # (Auto) 4.3, Lymph # (Auto) 0.9, [place] # (Auto) 0.2, Eos # (Auto) 0.1, Baso # (Auto) 0.0, PT 11.9, INR 1.07, APTT 28.4, Sodium 139, Potassium 3.8, Chloride 108 H, Carbon Dioxide 27, Anion Gap 7.8, BUN 21 H, Creatinine 0.60 L, Estimated Creat Clear 253, Estimated GFR 140, Est GFR ( Amer) 169, Glucose 132 H, Calcium 9.0, Total Bilirubin 0.3, AST 21, ALT 19, Alkaline Phosphatase 123, Total Protein 6.7, Albumin 3.4 L, Globulin 3.3 H, Albumin/Globulin Ratio 1.0 L 02/23/24 20:13 02/23/24 20:13 Orders (Tests/Meds): ED MEDICATIONS Generic Name Dose Route Start Last Admin Trade Name Freq PRN Reason Stop Dose Admin Sodium Chloride 10 ml 02/23/24 20:50 02/23/24 20:51 Sodium Chloride 0.9% 10ml Syr (Rad Only) IV 03/24/24 20:49 10 ml NEEDED PRN Administration Maintain IV Site Discontinued Medications Generic Name Dose Route Start Last Admin Trade Name Freq PRN Reason Stop Dose Admin Iopamidol 70 ml 02/23/24 20:50 02/23/24 20:51 Iopamidol-370 (76%);100ml Bottle IV 02/23/24 20:51 70 ml ONCE ONE Administration Sodium Chloride 50 ml 02/23/24 20:50 02/23/24 20:51 0.9 % Sodium Chloride 50 Ml Vial IV 02/23/24 20:51 50 ml ONCE ONE Administration ORDERS Category Date Time Status CT head/brain wo con Stat Cat Scan 02/23/24 19:52 Completed CTA Chest [CT angio chest PE protocol] Stat Cat Scan 02/23/24 19:52 Completed CBC w/Auto Diff [Complete Blood Count Auto Diff] Stat Lab 02/23/24 20:13 Completed CMP [Comprehensive Metabolic Panel] Stat Lab 02/23/24 20:13 Completed PT/INR [Prothrombin Time INR] Stat Lab 02/23/24 20:13 Completed PTT [Activated Partial Thrombo Time] Stat Lab 02/23/24 20:13 Completed ECG Data Tracing #1: I reviewed this ECG and interpreted as documented below: EKG without acute ischemia or infarction and at a rate of 86 with normal intervals and normal QT ECG initial impression date: 02/23/24 ECG initial impression time: 20:57 ECG normal with no acute: arrhythmias, ischemia, conduction abnormalities, chamber hypertrophy Normal Sinus Rhythm: Yes Medical Decision Narrative: Patient is a 53-year-old male with past medical history hypertension, hyperlipidemia, stage III lung cancer on chemo and radiation presenting with numbness and tingling of the bilateral feet upon standing for the past 4 days. Does have a history of sciatica in his left lower extremity and initially thought that was what was prompting symptoms, does also note some tingling in his bilateral pinkies during this time. No symptoms at present but given symptoms upon standing persisting presents for further evaluation. He notes he has been told that the tingling could be a side effect of his chemotherapy but he had not previously experienced symptoms. Will obtain labs and imaging for further evaluation especially considering history of cancer on chemotherapy and radiation. EKG without acute ischemia or infarction, CBC showing no acute process and patient is not neutropenic though slightly anemic which is chronic for him, CMP nonactionable, CT brain showing no acute process, CT PE showing no acute process but known lung mass and possible bronchitis. I did discuss these results with patient and would like to place patient on doxycycline considering possible bronchitis and his immunocompromised status though did discuss that this could be reactive in the setting of chemotherapy or radiation. To follow-up outpatient. Patient agreeable with plan and discharged in stable condition. Critical Care Critical Care Time Critical Care Time: No
[2024-02-23 20:23] LABS: Albumin Level 3.4 g/dl (3.5-5.0); Chloride 108 mmol/L (98-107); Potassium 3.8 mmoL/L (3.5-5.1); Sodium 139 mmol/L (136-145)
[2024-02-23 20:25] LABS: Blood Urea Nitrogen 21 mg/dl (9-20); Creatinine Clearance Estimated 253 mL/min (50-200); Estimated Glomerular Filt Rate 140 ml/min (>60); GFR (African American) 169 ML/MIN (>60)
[2024-02-23 20:26] LABS: Alanine Aminotransferase 19 U/L (12-78); Alkaline Phosphatase 123 U/L (38-126); Anion Gap 7.8 mEq/L (5-15); Aspartate Amino Transferase 21 U/L (17-59); Bilirubin,Total 0.3 mg/dl (0.2-1.3); Carbon Dioxide 27 mmol/L (22.0-30.0); Globulin 3.3 g/dL (1.3-3.2); Glucose 132 mg/dl (74-100); Total Protein,Serum 6.7 g/dl (6.3-8.2)
[2024-02-23 20:28] LABS: Activated Partial Thrombo Time 28.4 seconds (22.8-30.6); INR 1.07 (0.9-1.1); Prothrombin Time 11.9 seconds (10.1-12.5)
[2024-02-23 20:38] LABS: Basophils % 0.4 % (0.1-2.0); Eosinophils # 0.1 K/mm3 (0.0-0.4); Hematocrit 31.5 % (42.0-52.0); Hemoglobin 9.8 g/dL (14.1-18.0); Lymphocytes # 0.9 K/mm3 (0.7-4.5); Lymphocytes % 15.9 % (10-50); Mean Corpuscular HGB Conc 31.1 g/dL (31.8-35.4); Mean Corpuscular Hemoglobin 28.2 pg (27.0-31.2); Mean Corpuscular Volume 90.7 fl (80-94); Monocytes # 0.2 K/mm3 (0.1-1.0); Monocytes % 3.4 % (1.7-9.3); Neutrophils # 4.3 K/mm3 (1.8-7.8); Neutrophils % 78.2 % (37.0-80.0); Platelet Count 267 K/mm3 (142-424); Red Blood Count 3.47 M/mm3 (4.60-6.20); White Blood Count 5.5 K/mm3 (4.8-10.8)
[2024-02-23] MEDS: IOPAMIDOL-370 (76%);100ML BOTTLE 70 ML IV (20:51)
[2024-02-23] MEDS: SODIUM CHLORIDE 0.9% 10ML SYR (RAD ONLY) 10 ML IV (20:51)
[2024-02-23] MEDS: 0.9 % SODIUM CHLORIDE 50 ML VIAL IV (20:51)
--- NOTE | 2024-02-23 22:12 | PC.NURSE ---
Patient ambulated to restroom unassisted.
== END 2024-02-23 22:52 | disposition home or self-care (01) ==
PROVIDERS: Emergency Provider Emergency Medicine; PCP Nurse Practitioner Family
DX: R20.2 Paresthesia of skin (principal); J20.9 Acute bronchitis, unspecified; C34.90 Malignant neoplasm of unspecified part of unspecified bronchus or lung; I10 Essential (primary) hypertension; E78.5 Hyperlipidemia, unspecified; Z92.21 Personal history of antineoplastic chemotherapy; Z92.3 Personal history of irradiation
CPT/HCPCS: 70450; 71275; 80053; 85025; 85610; 85730; 93005; 96374; 99285; J1642; Q9967

== ENCOUNTER 2024-03-25 15:07 | Emergency (ER) | payer OTHER, SELFPAY ==
[2024-03-25 16:00] VITALS: BP 129/73; PULSE 91; RESP 19; TEMP 36.6; O2SAT 99; BMI 36.9
--- NOTE | 2024-03-25 16:05 | EXP.UTC ---
Discharge Plan Disposition Patient Disposition: Home, Self-Care Condition: Good Prescriptions Prescriptions: New methocarbamol 500 mg tablet 500 mg PO TID PRN (Reason: muscle spasm) Qty: 20 0RF methylprednisolone [Medrol (Kain)] 4 mg tablets,dose pack See Rx Instructions .Route .COMPLEX 6 Days Qty: 21 0RF Rx Instructions: taper pack; No Action potassium chloride 10 mEq capsule, extended release 10 meq PO DAILY Patient Comments: TAKE ONE CAPSULE BY MOUTH EVERY DAY --TAKE WITH FOOD-- furosemide 20 mg tablet 20 mg PO DAILY testosterone [AndroGel] 1 % (25 mg/2.5gram) gel in packet 1 packet TRANSDERMA DAILY ciprofloxacin-dexamethasone 0.3-0.1 % Drops,Suspension 2 drp Ear-Left BID 7 Days Qty: 1 0RF methylprednisolone 4 mg Tablets,Dose Pack 4 mg PO DIRECTED Qty: 21 0RF cefdinir 300 mg capsule 300 mg PO BID Qty: 20 0RF metoprolol succinate 50 MG tablet extended release 24 hr 50 mg PO DAILY omeprazole 40 MG capsule,delayed release(DR/EC) 40 mg PO DAILY hydrochlorothiazide 12.5 MG capsule 12.5 mg PO DAILY losartan 100 MG tablet 100 mg PO DAILY methocarbamol 500 mg tablet 500 mg PO TID PRN (Reason: muscle pain) Qty: 30 0RF methylprednisolone 4 mg Tablets,Dose Pack 4 mg PO DIRECTED Qty: 21 0RF doxycycline hyclate 100 mg capsule 100 mg PO BID 7 Days Qty: 14 0RF Referrals Follow up/Referrals: Nahid Montana APRN [Primary Care Provider] - See instructions Activity Restrictions/Add. Instructions Additional Instructions/Restrictions: *Ibuprofen ana 6 hours with meal as needed for pain/inflammation if you can take it *Remember you had a Toradol shot in the clinic today, which is similar to Motrin *Not additional anti-inflammatory like motrin, aleve, advil with the above amount of ibuprofen. You can still take Tylenol every 4 hours as needed if you need something else for pain *Muscle relaxer every 8 hours as needed for muscle spasms but remember, it WILL cause drowsiness You cannot take it and drive, operate machinery or care for small children. Start oral steriod tomorrow *Keep this area active, no movement leads to more stiffness, However take it easy and avoid heavy lifting pushing or pulling *Follow up with you family doctor if no improvement for further treatment Clinical Impressions Clinical Impression: Left sided sciatica Instructions Patient Instructions: DI for Sciatica, DI for Back Pain With Sciatica Print Language Print Language: Swazi Discharge ED Provider: Yoanna Dixon [facility] [place] H[place] General Stated complaint: poss sciatic nerve pain Time Seen by Provider: 03/25/24 16:05 History of Present Illness Provider Complaint: Patient states that he has a hx of back problems and has had sciatic nerve pain for years on and off and earlier today he was getting a MRI and as he went to get up he felt it pull and started having sciatica in his left buttock area States when it does this he has to come in and get a shot of steriod and muscle relaxers to help Denies loss of control of bowel or bladder Related Data Home Medications ?Medication ?Instructions ?Recorded ?Confirmed hydrochlorothiazide 12.5 mg capsule 12.5 mg PO DAILY HTN 08/28/19 10/31/22 losartan 100 mg tablet 100 mg PO DAILY HTN 08/28/19 10/31/22 metoprolol succinate 50 mg 50 mg PO DAILY HTN 08/28/19 10/31/22 tablet,extended release 24 hr omeprazole 40 mg capsule,delayed 40 mg PO DAILY GERD 08/28/19 10/31/22 release furosemide 20 mg tablet 20 mg PO DAILY Fluid 12/12/19 10/31/22 potassium chloride 10 mEq 10 meq PO DAILY . 12/12/19 10/31/22 capsule,extended release testosterone 1 % (25 mg/2.5 gram) 1 packet transdermal DAILY 12/12/19 01/05/20 transdermal gel packet (AndroGel) Previous Rx's ?Medication ?Instructions ?Recorded cefdinir 300 mg capsule 300 mg PO BID #20 caps 10/31/22 ciprofloxacin 0.3 %-dexamethasone 2 drp Ear-
[2024-03-25 16:39] VITALS: BP 129/73; PULSE 91; RESP 19; TEMP 36.6; O2SAT 99
== END 2024-03-25 16:41 | disposition home or self-care (01) ==
PROVIDERS: Emergency Provider Nurse Practitioner; PCP Nurse Practitioner Family
DX: M54.32 Sciatica, left side (principal)
CPT/HCPCS: 96372; 99212; 99214; G0463; J1885; J2919

== ENCOUNTER 2024-06-17 10:47 | Emergency (ER) | payer OTHER, SELFPAY ==
--- NOTE | 2024-06-17 10:50 | XR_ITS ---
PROCEDURE INFORMATION: Exam: XR Left Ribs with PA Chest Exam date and time: 06/17/2024 10:48 AM Age: 54 years old Clinical indication: Chest wall pain; Left; Additional info: Pain in ribs from coughing TECHNIQUE: Imaging protocol: Radiologic exam of the left ribs with PA chest. Views: 3 views COMPARISON: CT ANGIO CHEST PE PROTOCOL 02/23/2024 8:39 PM FINDINGS: Tubes, catheters and devices: There is a left tunneled catheter with its tip in the cavoatrial junction. Lungs: There is an opacity in right lower lobe that correlates with known cavitated right lower lobe lesion in prior CT chest. Pleural spaces: Unremarkable. No pleural effusion. No pneumothorax. Heart/Mediastinum: Unremarkable. No cardiomegaly. Bones/joints: No visible acute fracture. IMPRESSION: 1. No visible acute fracture. 2. There is redemonstration of right lower lobe cavitary lesion.
[2024-06-17 11:10] VITALS: BP 114/91; PULSE 84; RESP 19; TEMP 36.8; O2SAT 97; BMI 25.3
--- NOTE | 2024-06-17 11:27 | EXP.UTC ---
Discharge Plan Disposition Patient Disposition: Home, Self-Care Condition: Good Prescriptions Prescriptions: No Action prednisone 10 mg tablet 10 mg PO DAILY cetirizine 10 mg tablet 10 mg PO DAILY Patient Comments: TAKE ONE TABLET BY MOUTH EVERY DAY omeprazole 40 mg capsule,delayed release(DR/EC) 40 mg PO AM Patient Comments: TAKE ONE CAPSULE BY MOUTH EVERY DAY 30 minutes BEFORE morning meal spironolactone 25 mg tablet 25 mg PO DAILY Patient Comments: TAKE ONE TABLET BY MOUTH EVERY DAY AFTER LUNCH potassium chloride 20 mEq tablet,ER particles/crystals 20 meq PO DAILY Patient Comments: TAKE ONE TABLET BY MOUTH EVERY DAY WITH FUROSEMIDE --TAKE WITH FOOD-- pravastatin 80 mg tablet 80 mg PO DAILY Patient Comments: TAKE ONE TABLET BY MOUTH EVERY DAY tamsulosin 0.4 mg capsule 0.4 mg PO DAILY Patient Comments: TAKE ONE CAPSULE BY MOUTH EVERY DAY trazodone 150 mg tablet 150 mg PO HS Patient Comments: TAKE ONE TABLET BY MOUTH EVERY DAY AT BEDTIME metoprolol tartrate 50 mg tablet 50 mg PO BID Patient Comments: TAKE ONE TABLET BY MOUTH TWICE DAILY montelukast 10 mg tablet 10 mg PO HS Patient Comments: TAKE ONE TABLET BY MOUTH EVERY DAY AT BEDTIME morphine 15 mg tablet extended release 15 mg PO Q12H Patient Comments: TAKE ONE TABLET BY MOUTH EVERY TWELVE HOURS MAY CAUSE DROWSINESS furosemide 20 mg tablet 20 mg PO DAILY Patient Comments: TAKE ONE TABLET BY MOUTH EVERY DAY albuterol sulfate [Ventolin HFA] 90 mcg/actuation HFA aerosol inhaler 2 puff INHALATION Q6HP PRN (Reason: SOA) Patient Comments: INHALE TWO PUFFS BY MOUTH EVERY 6 HOURS NEEDED fluticasone propionate 50 mcg/actuation spray,suspension 2 spray INTRANASAL DAILY Patient Comments: INSTILL 2 SPRAYS IN EACH NOSTRIL EVERY DAY DIRECTED losartan-hydrochlorothiazide 100-12.5 mg tablet 1 tab PO DAILY Patient Comments: TAKE ONE TABLET BY MOUTH EVERY DAY Eliquis 5 mg tablet 5 mg PO Q12H Patient Comments: TAKE ONE TABLET BY MOUTH EVERY TWELVE HOURS Trelegy Ellipta 200-62.5-25 mcg blister with device 1 ea INHALATION DAILY Patient Comments: INHALE 1 PUFF BY MOUTH EVERY DAY --RINSE MOUTH AFTER USE-- Referrals Follow up/Referrals: Nahid Montana APRN [Primary Care Provider] - See instructions Activity Restrictions/Add. Instructions Additional Instructions/Restrictions: Use topical lidocaine patches in area may help with pain and discomfort Follow up with you Family Doctor for further testing and evaluation Return if needed Straight to ER if any life threatening symptoms Clinical Impressions Clinical Impression: Rib pain Instructions Patient Instructions: DI for Acute Pain -- Adult Print Language Print Language: Haitian Discharge ED Provider: Yoanna Dixon [facility] HPI General Stated complaint: poss. cracked ribs left side Mode of Arrival: Ambulatory Source of Information: Patient Limitations: No Limitations Time Seen by Provider: 06/17/24 11:27 Description of Symptoms (Recalled from Triage Doc. by RN): PATIENT C/O PAIN TO LEFT RIB. HE STATES HE HAS CANCER AND IS CURRENTLY ON CHEMO AND RADIATION. 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 and is currently undergoing Chemo and radiation and it has been making him have dry heaves States that he thinks he may have cracked a rib while dry heaving he has been having pain in his left ribs that is worse with movement States that he wanted to get checked to see if may have broken or cracked a rib while he was dry heaving Denies SOA denies fever denies any other symptoms Related Data Home Medications ?Medication ?Instructions ?Recorded ?Confirmed albuterol sulfate 90 mcg/actuation 2 puff inhalation Q6HP PRN SOA 06/17/24 06/17/24 aerosol inhaler (Ventolin HFA) apixaban 5 mg tablet (Eliquis) 5 mg PO Q12H 06/17/24 06/17/24 cetirizine 10 mg tablet 10 mg PO DAILY 06/17/24 06/17/24 fluticasone fur. 200 mcg-umeclid 1 ea inhalation DAILY 06/17/24 06/17/24 62.5 mcg-vilant 25 mcg inhalat.powder (Trelegy Ellipta) fluticasone propionate 50 2 spray intranasal DAILY 06/17/24 06/17/24 mcg/actuation nasal spray,suspension furosemide 20 mg tablet 20 mg PO DAILY 06/17/24 06/17/24 losartan 100 1 tab PO DAILY 06/17/24 06/17/24 mg-hydrochlorothiazide 12.5 mg tablet metoprolol tartrate 50 mg tablet 50 mg PO BID 06/17/24 06/17/24 montelukast 10 mg tablet 10 mg PO HS 06/17/24 06/17/24 morphine 15 mg tablet,extended 15 mg PO Q12H 06/17/24 06/17/24 release omeprazole 40 mg capsule,delayed 40 mg PO AM 06/17/24 06/17/24 release potassium chloride 20 mEq 20 meq PO DAILY 06/17/24 06/17/24 tablet,extended release(part/cryst) pravastatin 80 mg tablet 80 mg PO DAILY 06/17/24 06/17/24 prednisone 10 mg tablet 10 mg PO DAILY 06/17/24 06/17/24 spironolactone 25 mg tablet 25 mg PO DAILY 06/17/24 06/17/24 tamsulosin 0.4 mg capsule 0.4 mg PO DAILY 06/17/24 06/17/24 trazodone 150 mg tablet 150 mg PO HS 06/17/24 06/17/24 Allergies Allergy/AdvReac Type Severity Reaction Status Date / Time No Known Allergies Allergy Verified 10/31/22 16:02 Worker's Comp Is this a Worker's Comp case?: No [facility] Disclaimer: The information contained in this section may have been updated after the patient was seen, as this information can be updated by other users. Medical History (Updated 06/17/24 @ 12:40 by Yoanna Dixon APRN) Kidney stone COPD (chronic obstructive pulmonary disease) Asthma Atrial fibrillation Hyperlipidemia Hypertension Surgical History (Updated 03/25/24 @ 16:11 by Rosi Oswald RN) History of cholecystectomy Social History Smoking Status: Current every day smoker tobacco type: cigarettes packs per day: 1 second hand exposure: Yes alcohol intake: never substance use type: marijuana current occupational status: other Travel in the last 8 weeks: None household members: spouse housing: house ROS Obtained: Yes All systems reviewed & no additional complaints except as documented and Yes Systems reviewed as appropriate & no additional complaints except as documented Constitutional Constitutional: Reports system reviewed and no additional complaints, except as documented and Reports as per HPI ENT Ears, Nose, Mouth, and Throat: Reports system reviewed and no additional complaints, except as documented and Reports as per HPI Cardiovascular Cardiovascular: Reports system reviewed and no additional complaints, except as documented and Reports as per HPI Respiratory Respiratory: Reports system reviewed and no additional complaints, except as documented, Reports as per HPI, Denies shortness of breath, Denies chest congestion, Denies cough and Denies wheezing Gastrointestinal Gastrointestingal: Reports system reviewed and no additional complaints, except as documented, as per HPI and nausea (after Chemo or radiation treatments) Musculoskeletal Musculoskeletal: Reports system reviewed and no additional complaints, except as documented, Reports as per HPI and Reports other (pain in left side of ribs worse with movement) Allergic/Immunologic Allergic/Immunologic: Denies wheezing Physical Exam General General appearance: alert and in no apparent distress ENT ENT exam: Present mucous membranes moist Chest Chest inspection: Present tenderness Expanded Chest Exam Male Torso: 1. reports tenderness and pain in left lower ribs after having an episode of dry heaving 1.5 wks ago, no bruising no swelling no rash noted Reprorts pain worse with movement Respiratory Respiratory exam: Present normal lung sounds bilaterally; Absent respiratory distress or wheezes Cardiovascular Cardiovascular exam: Present regular rate, normal rhythm and normal heart sounds Abdominal Exam Abdominal exam: Present soft and normal bowel sounds; Absent distention or tenderness Neurological Exam Neurological exam: Present alert, oriented X3 and normal gait Medical Decision Making Medical Records Screening: Per USPSTF and CDC recommendations, given the prevalence of disease in our region, it is our hospital?s policy to screen for HIV and viral Hepatitis for all patients aged 18 and over and those with ongoing risk factors. Musa Inquiry Pt receiving controlled substance: No Musa was queried for this patient: No Vital Signs: 06/17/24 11:10 Temperature 98.3 F Temperature Source Oral Pulse Rate [Left Brachial] 84 Respiratory Rate 19 Blood Pressure [Left Arm] 114/91 H Blood Pressure Mean [Left Arm] 98 Blood Pressure Source [Left Arm] Automatic Cuff Blood Pressure Position [Left Arm] Sitting 02 Sat by Pulse Oximetry 97 Oxygen Delivery Method Room Air Orders (Tests/Meds): ORDERS Category Date Time Status XR ribs LT min 3V w CXR1V Stat Exams 06/17/24 10:50 Taken Radiology Data #1: Image(s): Chest (with left ribs) Image Reviewed: Yes I have reviewed radiologist's interpretation IMPRESSION: 1. No visible acute fracture. 2. There is redemonstration of right lower lobe cavitary lesion.
[2024-06-17 12:43] VITALS: BP 114/91; PULSE 84; RESP 19; TEMP 36.8; O2SAT 97
== END 2024-06-17 12:48 | disposition home or self-care (01) ==
PROVIDERS: Emergency Provider Nurse Practitioner; PCP Nurse Practitioner Family
DX: R07.81 Pleurodynia (principal); C34.90 Malignant neoplasm of unspecified part of unspecified bronchus or lung; R11.0 Nausea
CPT/HCPCS: 71101; 99212; G0381